=== PATIENT | female | born 1990 | race Caucasian/White ===

== ENCOUNTER 2018-10-16 00:19 | Emergency (ER) | payer OTHER ==
[~2018-10-16] VITALS: Ht 160 cm; Wt 88.5 kg
[2018-10-16 00:20] VITALS: BP 166/115
[2018-10-16] MEDS ORDERED: TETRACAINE 0.5% OPHTH SOLUTION 4ML BOTTLE. ONE (00:39)
[2018-10-16] MEDS ORDERED: HYDR-3164 PO (01:05)
[2018-10-16] MEDS ORDERED: PRED10DR OS (01:05)
[2018-10-16] MEDS ORDERED: OFLO5DRO OS (01:05)
--- NOTE | 2018-10-16 04:16 | PHYS DOC ---
Past Medical History Past Medical History: Anxiety, Hypertension Past Surgical History: Tonsillectomy Additional Information: 8 CIGARETTES PER DAY Alcohol Use: Occasionally Drug Use: None Adult General Chief Complaint Chief Complaint: EYE PROBLEMS HPI HPI Patient is a 28 year old female who presents with left eye irritation. Patient awoke this morning with pain in the left eye and irritation and redness and watering. She did not have any trauma. Her symptoms worsen throughout the day. She was wearing contact lenses when she awoke and was having the pain although during the course of today she has been wearing glasses. Denies vision loss. Review of Systems Review of Systems Constitutional: Denies fever Eyes: as documented above HENT: Denies nasal congestion Respiratory: Denies cough or shortness of breath GI: Denies : Denies Musculoskeletal: Denies back pain Integument: Denies rash or skin lesions Neurologic: Denies headache All other systems were reviewed and found to be within normal limits, except as documented in this note. Current Medications Current Medications Current Medications Medications (Trade) Dose Ordered Sig/Aylin Start Time Stop Time Status Last Admin Dose Admin Tetracaine HCl (Tetracaine) 40 drop STK-MED ONCE 10/16/18 00:39 10/16/18 00:40 DC Allergies Allergies Allergies Coded Allergies Type Severity Reaction Last Updated Verified No Known Drug Allergies 10/16/18 No Physical Exam Physical Exam Constitutional: Well developed, well nourished HENT: Normocephalic, atraumatic Eyes: PERRLA, EOMI, left eye with injected conjunctiva, Neck: Normal range of motion, no tenderness Skin: Warm, dry, no erythema Back: No tenderness Extremities: No tenderness Neurologic: Alert and oriented X 3 Psychologic: Affect normal Slit Lamp exam: Lids are normal, no foreign body is seen. Lacrimal glands are normal. No stye. Anterior chamber is clear. There is no cell or flare. Fluorescein was used to stain and there was no uptake of stain seen. Visual Acuities (uncorrected) OS: 20/50 OD: 20/20 IOP's: 17, 21, 19 in left eye. Current Patient Data Vital Signs Vital Signs Date Time Temp Pulse Resp B/P (MAP) Pulse Ox O2 Delivery O2 Flow Rate FiO2 10/16/18 00:20 97.6 97 18 166/115 (132) 97 Room Air 97.6 EKG EKG [] Radiology/Procedures Radiology/Procedures [] Course & Med Decision Making Course & Med Decision Making Pertinent Labs and Imaging studies reviewed. (See chart for details) Patient was evaluated in the emergency department for suspected corneal abrasion or corneal ulcer. She does wear contact lenses and her presentation seem typical for that. But there was no large ulcer or abrasion seen. There was no foreign body seen. The anterior chamber was clear. The rest of the exam was unremarkable except that she did have conjunctival irritation. She had no severe pain and was able to range the eye. Intraocular pressures were normal range. Given that the patient was contacts, she is treated with Omnipred as well as a fluoroquinolone based I drop. She was provided the phone number for ophthalmology and recommended to call first thing in the morning for close follow-up appointment and a repeat examination. Return to the emergency department for any new or worsening symptoms during the interim. Her last tetanus immunization was one year ago. Dragon Disclaimer Dragon Disclaimer This electronic medical record was generated, in whole or in part, using a voice recognition dictation system. Departure Departure Impression: Primary Impression: Corneal abrasion Disposition: 01 HOME, SELF-CARE Condition: GOOD Referrals: WILLIE RIDER MD (PCP) Jo Ann WOODS MD Patient Instructions: Eye - Corneal Abrasion Additional Instructions: Call the eye doctor's office number provided tomorrow to arrange a close follow up. Tell them you were in the ER and area supposed to be followed up closely. Scripts Prednisolone Acetate (OMNIPRED) 10 Ml Drops.susp 1 DROP OS TID, #5 ML 1 Refill Prov: GALO PUGA DO 10/16/18 Ofloxacin (OCUFLOX) 5 Ml Drops 2 DROP OS Q3H, #1 BOTTLE Prov: GALO PUGA DO 10/16/18 Hydrocodone/Apap 5-325 (NORCO 5-325 TABLET) 1 Each Tablet 1-2 EACH PO PRN Q6HRS PRN for SEVERE PAIN, #10 as needed for pain Prov: GALO PUGA DO 10/16/18 GALO PUGA DO Oct 16, 2018 04:16
== END 2018-10-16 01:18 | disposition home or self-care (01) ==
LOC: ER 00:19
DX: S05.02XA Injury of conjunctiva and corneal abrasion without foreign body, left eye, initial encounter (principal); F41.9 Anxiety disorder, unspecified; I10 Essential (primary) hypertension; F17.210 Nicotine dependence, cigarettes, uncomplicated; X58.XXXA Exposure to other specified factors, initial encounter; Y93.89 Activity, other specified; Y92.89 Other specified places as the place of occurrence of the external cause; Y99.8 Other external cause status
CPT/HCPCS: 99283

== ENCOUNTER 2020-11-09 09:52 | Emergency (ER) | payer OTHER ==
[~2020-11-09] VITALS: Ht 160 cm; Wt 95.5 kg
[~2020-11-09 09:52] MED LIST: HYDR-3164 PO; OFLO5DRO OS; PRED10DR OS
--- NOTE | 2020-11-09 10:07 | PHYS DOC ---
Past Medical History Past Medical History: Anxiety, Hypertension Past Surgical History: Tonsillectomy Smoking Status: Current Every Day Smoker Alcohol Use: Occasionally Drug Use: None General Adult EDM: Chief Complaint: FOOT INJURY PAIN HPI: HPI: Patient is a 30 year old female with a history of anxiety, hypertension, who presents to the ED today complaining of pain on top of the right foot rated at 8 out of 10 described as sharp and is intermittent, symptoms began yesterday after she hit the top of her right foot on the bed. Patient states the pain is worse on weightbearing. Denies anything specifically alleviating the pain. Review of Systems: Review of Systems: Constitutional: Denies fever or chills. [] Musculoskeletal: Reports right foot pain. Denies back pain Integument: Denies rash. [] Neurologic: Denies headache, focal weakness or sensory changes. [] Psychiatric: Denies depression or anxiety. [] Heart Score: Risk Factors: Risk Factors: DM, Current or recent (<one month) smoker, HTN, HLP, family history of CAD, obesity. Risk Scores: Score 0 - 3: 2.5% MACE over next 6 weeks - Discharge Home Score 4 - 6: 20.3% MACE over next 6 weeks - Admit for Clinical Observation Score 7 - 10: 72.7% MACE over next 6 weeks - Early Invasive Strategies Allergies: Allergies: Allergies Coded Allergies Type Severity Reaction Last Updated Verified No Known Drug Allergies 10/16/18 No Physical Exam: PE: Constitutional: Well developed, well nourished, no acute distress, non-toxic appearance. [] Skin: Warm, dry, no erythema, no rash. [] Back: No tenderness, no CVA tenderness. [] Extremities: Right foot with no obvious deformity, no edema, no ecchymosis. Tenderness on palpation of the right foot MTP of the second and third metatarsals. Full range of motion to the right foot and toes. +2 right pedal pulse. Cap refill less than 2 seconds the right toes. No tenderness on the navicular bone of the base of the fifth metatarsal. Neurologic: Alert and oriented X 3, normal motor function, normal sensory function, no focal deficits noted. [] Psychologic: Affect normal, judgement normal, mood normal. [] EKG: EKG: [] Radiology/Procedures: Radiology/Procedures: []PROCEDURE: FOOT RIGHT 3V XR FOOT_RIGHT 3 VIEWS DATE: 11/09/2020 10:08 AM INDICATION: Reason: stubbed foot on bed. pain / Spl. Instructions: / History: COMPARISON: None. FINDINGS: Bones: There is no evidence of acute fracture or dislocation. Plantar calcaneal enthesophyte. Joints: The joint spaces are normal. Miscellaneous: None. IMPRESSION: No evidence of acute fracture. Electronically signed by: Kvng Gu MD (11/09/2020 10:49 AM) [id number] DICTATED and SIGNED BY: KVNG GU MD DATE: 11/09/20 [id number] Course & Med Decision Making: Course & Med Decision Making Pertinent Labs and Imaging studies reviewed. (See chart for details) This is a 30-year-old female patient presented to the ED today with right foot pain that began yesterday after she hit the top of her foot on the bed. Right foot x-rays interpreted by radiologist are negative for any acute findings. Discharge to home. Ice elevation encouraged. OTC pain relievers. Ortho shoe placed to the right foot by me, neurovascular exam is intact. Follow-up with PCP as needed Dragon Disclaimer: Dragon Disclaimer: This electronic medical record was generated, in whole or in part, using a voice recognition dictation system. Departure Departure Impression: Primary Impression: Contusion of right foot Qualified Codes: S90.31XA - Contusion of right foot, initial encounter Disposition: 01 DC HOME SELF CARE/HOMELESS Condition: STABLE Referrals: WILLIE RIDER MD (PCP) Follow-up with your doctor in 1 to 2 weeks Patient Instructions: Contusion, [id number] Additional Instructions: You were evaluated in the emergency room for right foot contusion. Your right foot x-rays are negative for any acute findings. Try to ice and elevate the extremity. Take [id number] pain relievers as needed. KEELEY SCHWARTZ APRN Nov 09, 2020 10:07
--- NOTE | 2020-11-09 10:52 | RAD ---
XR FOOT_RIGHT 3 VIEWS DATE: 11/09/2020 10:08 AM INDICATION: Reason: stubbed foot on bed. pain / Spl. Instructions: / History: COMPARISON: None. FINDINGS: Bones: There is no evidence of acute fracture or dislocation. Plantar calcaneal enthesophyte. Joints: The joint spaces are normal. Miscellaneous: None. IMPRESSION: No evidence of acute fracture. Electronically signed by: Gabo Modi MD (11/09/2020 10:49 AM) [id number]
[2020-11-09 11:05] VITALS: BP 152/103
== END 2020-11-09 11:13 | disposition home or self-care (01) ==
LOC: ER 09:52
DX: S90.31XA Contusion of right foot, initial encounter (principal); F41.9 Anxiety disorder, unspecified; I10 Essential (primary) hypertension; F17.200 Nicotine dependence, unspecified, uncomplicated; Z90.89 Acquired absence of other organs; W22.8XXA Striking against or struck by other objects, initial encounter; Y93.89 Activity, other specified; Y92.89 Other specified places as the place of occurrence of the external cause; Y99.8 Other external cause status
CPT/HCPCS: 73630; 99283

== ENCOUNTER 2021-04-11 11:59 | Emergency (ER) | payer OTHER ==
[~2021-04-11] VITALS: Ht 160 cm; Wt 100.0 kg
[2021-04-11] MEDS: DEXAMETHASONE 4 MG TABLET PO ONE (13:08)
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
[2021-04-11 15:11] VITALS: BP 165/98
== END 2021-04-11 15:13 | disposition home or self-care (01) ==
LOC: ER 11:59
DX: S06.0X9A Concussion with loss of consciousness of unspecified duration, initial encounter (principal); I10 Essential (primary) hypertension; F17.200 Nicotine dependence, unspecified, uncomplicated; V49.49XA Driver injured in collision with other motor vehicles in traffic accident, initial encounter; Y92.488 Other paved roadways as the place of occurrence of the external cause; Y93.89 Activity, other specified; Y99.8 Other external cause status
CPT/HCPCS: 70450; 81025; 99285-25